=== PATIENT | male | born 1950 | race African-American/Black ===

== ENCOUNTER 2021-02-22 13:34 | Emergency (ER) | payer MEDICARE, MEDICAID, SELFPAY ==
[2021-02-22] VITALS (11 sets, daily range): BP systolic 119; BP diastolic 64; PULSE 77–79; RESP 18–28; TEMP 36.9; O2SAT 96; BMI 33.0
--- NOTE | ~2021-02-22 | CT_ITS ---
EXAMINATION: CT HEAD WITHOUT CONTRAST CLINICAL INFORMATION: Weakness, AMS. COMPARISON: CT brain 10/21/2018 TECHNIQUE: Contiguous axial imaging was performed from the skull base to vertex without intravenous administration of contrast. This CT examination was performed using dose optimization techniques as appropriate, variously including the following: *Automated exposure control *Adjustment of mA and/or kV according to patient size (this includes techniques or standardized protocols for targeted exams where dose is matched to indication/reason for exam; i.e. extremities or head) *Use of iterative reconstruction technique DLP: 823 mGy-cm FINDINGS: There is no evidence of acute intracranial hemorrhage or territorial infarction. No abnormal mass effect or midline shift is seen. Villa to white matter differentiation is well preserved. No extra-axial fluid collections are identified. The ventricles are normal in size. There is no abnormal attenuation within the brain parenchyma. The osseous structures and soft tissues are normal. The mastoid air cells and visualized portions of the paranasal sinuses are well aerated. CT/CT head/brain wo con IMPRESSION: No acute intracranial process seen.
--- NOTE | ~2021-02-22 | XR_ITS ---
EXAMINATION: XR CHEST CLINICAL INFORMATION: Weakness COMPARISON: None TECHNIQUE: 2 views of the chest were obtained. FINDINGS: There is elevation of the left hemidiaphragm with gaseous distended stomach below it. No acute parenchymal disease, pneumothorax, or pleural effusion. Heart normal size. No evidence of pulmonary edema. XR/XR chest 2V IMPRESSION: No acute disease.
--- NOTE | 2021-02-22 13:52 | ECG_ITS ---
Test Reason : ALTER MENTAL Blood Pressure : / mmHG Vent. Rate : 076 BPM Atrial Rate : 076 BPM P-R Int : 182 ms QRS Dur : 084 ms QT Int : 382 ms P-R-T Axes : 042 073 056 degrees QTc Int : 429 ms Normal sinus rhythm Normal ECG No previous ECGs available Referred By: Mamie Gutierres Electronically Signed By:Armand Rodriguez
--- NOTE | 2021-02-22 13:54 | ED.AMS ---
HPI - Altered Mental Status General Chief Complaint: General Medical Stated Complaint: change in behavior Time Seen by Provider: 02/22/21 13:41 Source: EMS Mode of arrival: EMS Limitations: no limitations History of Present Illness HPI narrative: 71-year-old male coming from a [facility] with a past medical history of dementia, diabetes, bipolar disease, hypertension, epilepsy here with complaints of generalized weakness. Patient had lunch per report and after that started to complain of feeling unwell to staff. No specific complaints. Patient states I'm gonna today. Staff was also concerned that he was more confused from baseline. No recent falls or trauma reported. Patient denies any chest pain, abdominal pain, vomiting, fevers, chills. Of note, the patient is a DNR/DNI/do not hospitalize except for injury. Related Data Allergies Allergy/AdvReac Type Severity Reaction Status Date / Time No Known Allergies Allergy Verified 02/22/21 13:52 Review of Systems Review of Systems: Yes all other systems are reviewed and are negative Constitutional: Constitutional: Reports no additional constitutional complaints, Denies body ache(s), Denies chills, Denies fever(s), Denies headache(s) and Reports weakness Eyes: Eyes: Reports no additional eye complaints and Denies change in vision ENT: Reports system reviewed and no additional complaints, except as documented, Denies dizziness, Denies headache(s), Denies nasal congestion, Denies nasal discharge and Denies neck pain Cardiovascular: Cardiovascular: Reports no additional cardiovascular complaints, Denies chest pain, Denies leg edema and Denies dyspnea Respiratory: Respiratory: Reports no additional respiratory complaints, Denies cough and Denies dyspnea Gastrointestinal: Gastrointestinal: Reports no additional gastrointestinal complaints, Denies abdominal pain, Denies diarrhea, Denies nausea and Denies vomiting Genitourinary: Genitourinary: Denies urinary incontinence Musculoskeletal: Musculoskeletal: Reports no additional musculoskeletal complaints, Denies back pain, Denies arthralgias, Denies joint swelling, Denies neck pain, Denies numbness and Denies tingling Integumentary/Breasts: Skin/Breast: Reports system reviewed and no additional complaints, except as docu and Denies rash Neurologic: Reports system reviewed and no additional complaints, except as documented, Denies Abnormal speech present, Denies dizziness, Denies headache(s), Denies numbness, Denies tingling and Reports weakness PMF Past Medical History Attestation statement: The following information was validated with the patient. Source: old records reviewed and nursing notes reviewed Medical History Bipolar 1 disorder Dementia Epilepsy Epilepsy Neurosyphilis Primary hypertension Social History Social History Alcohol intake: former Patient Tobacco Use Status: Never used Tobacco Substance Use Type: Marijuana Advance Directives: Yes (DNR, Guardianship) Advance Directives on File: Yes Advance Directives Date on File: 02/22/21 Physical Exam Vital Signs: Vital Signs: Last Vital Signs Temp 98.5 F 02/22/21 13:53 Pulse 79 02/22/21 13:53 Resp 20 02/22/21 19:31 BP 119/64 02/22/21 13:53 Pulse Ox 96 02/22/21 13:53 Body Mass Index 33.0 Const: General: cooperative, healthy appearing, comfortable and no acute distress Orientation/consciousness: oriented to person Limitations: altered mental status HENMT: Head: Yes normal to inspection Ears: hearing grossly normal bilaterally General nose exam: Normal external nose present Face and sinus: Yes normal facial exam Mouth: Normal oral and palatal mucosa present Throat: Yes posterior oropharynx normal Eyes: General: appearance normal, both eyes and all related structures Pupils: Equal, round and reactive pupils present Neck: Neck: Yes normal visual inspection Chest: Chest palpation & inspection: normal inspection of the chest Resp: Effort & Inspection: normal respiratory effort Auscultation: clear to auscultation bilaterally Cardio: Rate: regular rate Rhythm: regular rhythm Peripheral pulses: Peripheral pulses 2+ throughout GI: Inspection: Yes normal to inspection Palpation (GI): Soft to palpation and nontender Auscultation: normal bowel sounds Back/Spine/Pelvis: Thoracic/Lumbar Spine: thoracic and lumbar spine normal to inspection Skin: General skin exam: no rashes or lesions noted Neuro: General: oriented to person, moves all extremities, normal sensation to monofilament and Unable to assess gait Cranial nerves: Yes Equal, round and reactive pupils present Cognition (Neuro): normal cognition Speech: No Abnormal speech present Gait exam (Neuro): Unable to assess gait Motor exam (neuro): 5/5 motor strength present throughout Sensory Exam: Normal double simultaneous stimulation for sensation Extrem: General: Yes normal to inspection, Yes no pedal edema and Yes no calf tenderness Course Course Course Narrative: 71 yo male coming from [facility] with compaints of generalized weakness, ?worsening confusion and stating I am going to . Note, the patient has underlying dementia. He is a DNR/DNI/to not transfer. However, today he was asking to be transported to the hospital and on arrival he is seeking full evaluation. Oriented to self only, moving all extremities with no unilateral weakness or paresthesias. Hemodynamically stable. Will check labs, UA, EKG, chest x-ray, CT head. 1540-elevated lactic acid. Likely from metformin and not from infection, 1640-imaging shows no acute finding. All other labs are unremarkable. UA is pending. Plan for repeat lactic acid after fluid infusion 1745-patient is refusing repeat lactic acid. Again this is likely secondary to metformin and not from infection. Also refusing to provide urine sample. Called and spoke to patient's guardian Rizwana Melo and she does not wish the patient to be held down for these tests. If he is not willing she is aggreable to his return to [facility]. 1840-unfortunately the patient became increasingly agitated while he was here in the emergency department. The multiple times of redirection were made unsuccessfully. Therefore he required 1 dose of IM Haldol. 1900-the patient had continued agitation, unable to be re-directed despite multiple attempts. Additional dose of haldol IM given. On review of patient's chart these behaviors are quite common and his dose of PO haldol was increased over the last week. On discharge patient was able to get dressed and on to the ambulance stretcher with no difficulty. He is much more calm and cooperative. MDM - Altered Mental Status Differential Diagnosis Differential diagnosis: Likely altered mental status, dementia, hypoglycemia, hyponatremia, renal failure, subarachnoid hemorrhage and sepsis Medical Records Attestation: I reviewed the patient's medical records. Lab Data Attestation: I reviewed the patient's lab results. Result diagrams: 02/22/21 14:37 02/22/21 16:03 Labs: Lab Results 02/22/21 02/22/21 02/22/21 Range/Units 14:36 14:36 14:37 WBC 9.2 (4.8-10.8) X10*3/uL RBC 4.35 L (4.60-5.80) X10*6/uL Hgb 12.9 L (14.0-18.0) g/dl Hct 38.9 L (42-52) % MCV 89.4 (80-98) fL MCH 29.7 (27.0-33.0) pg MCHC 33.2 (31.0-36.0) g/dl RDW 12.4 (11.0-16.0) % Plt Count 224 (160-400) X10*3/uL MPV 9.2 L (9.4-12.4) fL Immature Gran % (Auto) 0.3 (0.0-0.4) % Neut % (Auto) 65.0 (45-73) % Lymph % (Auto) 24.5 (20-40) % Twiggs % (Auto) 8.8 (2-11) % Eos % (Auto) 1.1 (0-4) % Baso % (Auto) 0.3 (0-2) % Lymph # (Auto) 2.3 (1.2-4.9) X10*3/uL Twiggs # (Auto) 0.8 (0.1-1.2) X10*3/uL Eos # (Auto) 0.1 (0.0-0.4) X10*3/uL Baso # (Auto) 0.0 (0.0-0.2) X10*3/uL Abs Immat Gran (auto) 0.03 (0.00-0.03) X10*3/uL Absolute Neuts (auto) 6.0 (2.0-8.3) X10*3/uL Absolute Nucleated RBC 0.000 (0.0-0.012) X10*3/uL Nucleated RBC % (auto) 0.0 (0.0-0.2) /100WBC Sodium (135-145) mmol/L Potassium (3.3-5.1) mmol/L Chloride (96-108) mmol/L Carbon Dioxide (22-29) mmol/L Anion Gap (12-20) BUN (9-16) mg/dL Creatinine (0.5-1.4) mg/dL Estim Creat Clear Calc Estimated GFR Random Glucose (60-115) mg/dL Lactic Acid 2.5 H* (0.5-2.0) mmol/L Calcium (8.4-10.2) mg/dL Magnesium (1.6-2.6) mg/dL Total Bilirubin (0.0-1.0) mg/dL Direct Bilirubin (0.0-0.5) mg/dL AST (5-37) U/L ALT (0-40) U/L Alkaline Phosphatase (39-117) U/L Total Creatine Kinase (38-174) U/L Troponin I High Sens < 3.5 (<3.5-35.0) ng/L Total Protein (6.5-8.0) g/dL Albumin (3.5-5.0) g/dL Lipase (8-78) U/L COVID-19 (CHRISTINA) (Negative) COVID-19 Clin Com 02/22/21 02/22/21 Range/Units 14:37 16:03 WBC (4.8-10.8) X10*3/uL RBC (4.60-5.80) X10*6/uL Hgb (14.0-18.0) g/dl Hct (42-52) % MCV (80-98) fL MCH (27.0-33.0) pg MCHC (31.0-36.0) g/dl RDW (11.0-16.0) % Plt Count (160-400) X10*3/uL MPV (9.4-12.4) fL Immature Gran % (Auto) (0.0-0.4) % Neut % (Auto) (45-73) % Lymph % (Auto) (20-40) % Twiggs % (Auto) (2-11) % Eos % (Auto) (0-4) % Baso % (Auto) (0-2) % Lymph # (Auto) (1.2-4.9) X10*3/uL Twiggs # (Auto) (0.1-1.2) X10*3/uL Eos # (Auto) (0.0-0.4) X10*3/uL Baso # (Auto) (0.0-0.2) X10*3/uL Abs Immat Gran (auto) (0.00-0.03) X10*3/uL Absolute Neuts (auto) (2.0-8.3) X10*3/uL Absolute Nucleated RBC (0.0-0.012) X10*3/uL Nucleated RBC % (auto) (0.0-0.2) /100WBC Sodium 138 (135-145) mmol/L Potassium 4.3 (3.3-5.1) mmol/L Chloride 104 (96-108) mmol/L Carbon Dioxide 27 (22-29) mmol/L Anion Gap 11 L (12-20) BUN 17 H (9-16) mg/dL Creatinine 0.95 (0.5-1.4) mg/dL Estim Creat Clear Calc 85.0 Estimated GFR > 60 Random Glucose 74 (60-115) mg/dL Lactic Acid (0.5-2.0) mmol/L Calcium 9.1 (8.4-10.2) mg/dL Magnesium 2.0 (1.6-2.6) mg/dL Total Bilirubin 0.2 (0.0-1.0) mg/dL Direct Bilirubin < 0.2 (0.0-0.5) mg/dL AST 19 (5-37) U/L ALT 27 (0-40) U/L Alkaline Phosphatase 105 (39-117) U/L Total Creatine Kinase 177 H (38-174) U/L Troponin I High Sens (<3.5-35.0) ng/L Total Protein 6.9 (6.5-8.0) g/dL Albumin 3.9 (3.5-5.0) g/dL Lipase 56 (8-78) U/L COVID-19 (CHRISTINA) Negative (Negative) COVID-19 Clin Com See Note Imaging Data Chest x-ray: Attestation: I personally reviewed and interpreted this imaging study as follows: Radiologist's impression: EXAMINATION: XR CHEST CLINICAL INFORMATION: Weakness COMPARISON: None TECHNIQUE: 2 views of the chest were obtained. FINDINGS: There is elevation of the left hemidiaphragm with gaseous distended stomach below it. No acute parenchymal disease, pneumothorax, or pleural effusion. Heart normal size. No evidence of pulmonary edema. XR/XR chest 2V IMPRESSION: No acute disease. CT scan - head: Attestation: I personally reviewed and interpreted this imaging study as follows: Radiologist's impression: [address] [address] [address] Scan Report Signed Patient: Wiliam Nguyễn MR#: [id number] : 1950 Acct:[id number] Age/Sex: 71 / M ADM Date: 02/22/21 Loc: HO.ED Attending Dr: Ordering Physician: JAMIL TUTTLE NP Date of Service: 02/22/21 Procedure(s): CT head/brain wo con Accession Number(s): [id number] cc: JAMIL TUTTLE NP~ EXAMINATION: CT HEAD WITHOUT CONTRAST CLINICAL INFORMATION: Weakness, AMS.? COMPARISON: CT brain 10/21/2018 TECHNIQUE: Contiguous axial imaging was performed from the skull base to vertex without intravenous administration of contrast. This CT examination was performed using dose optimization techniques as appropriate, variously including the following: *Automated exposure control *Adjustment of mA and/or kV according to patient size (this includes techniques or standardized protocols for targeted exams where dose is matched to indication/reason for exam; i.e. extremities or head) *Use of iterative reconstruction technique DLP: 823 mGy-cm FINDINGS: There is no evidence of acute intracranial hemorrhage or territorial infarction. No abnormal mass effect or midline shift is seen. Villa to white matter differentiation is well preserved. No extra-axial fluid collections are identified. The ventricles are normal in size. There is no abnormal attenuation within the brain parenchyma. The osseous structures and soft tissues are normal. The mastoid air cells and visualized portions of the paranasal sinuses are well aerated. ? CT/CT head/brain wo con IMPRESSION: No acute intracranial process seen. ECG Data ECG #1: Attestation: I personally reviewed and interpreted this ECG as follows: ECG interpretation date: 02/22/21 ECG interpretation time: 14:18 Interpretation: Normal sinus rhythm with a rate of 76, normal DE, normal QRS, QT Discharge Plan Discharge Clinical Impression: Weakness Patient Disposition: [facility] Instructions: Weakness (ED) Additional Instructions: The patient refused a urine sample and repeat lab work. I spoke to his guardian Rizwana who was in agreement that we would not pursue these tests as the patient does not wish for them to be done. Referrals: Thanh Cervantes DO [Primary Care Provider] - 2 days Discharge Date/Time: 02/22/21 19:37
[2021-02-22 15:16] LABS: MANUAL DIFF FLAG NO
[2021-02-22 15:20] LABS: Basophils Percent Auto 0.3 % (0-2); Eosinophils Absolute Auto 0.1 X10*3/uL (0.0-0.4); Eosinophils Percent Auto 1.1 % (0-4); Hematocrit 38.9 % (42-52); Hemoglobin 12.9 g/dl (14.0-18.0); Imm Gran Abs Auto 0.03 X10*3/uL (0.00-0.03); Imm Gran Pct Auto 0.3 % (0.0-0.4); Lymphocytes Absolute Auto 2.3 X10*3/uL (1.2-4.9); Lymphocytes Percent Auto 24.5 % (20-40); Mean Corpuscular HGB Conc 33.2 g/dl (31.0-36.0); Mean Corpuscular Hemoglobin 29.7 pg (27.0-33.0); Mean Corpuscular Volume 89.4 fL (80-98); Mean Platelet Volume 9.2 fL (9.4-12.4); Monocytes Absolute Auto 0.8 X10*3/uL (0.1-1.2); Monocytes Percent Auto 8.8 % (2-11); Platelet Count 224 X10*3/uL (160-400); Red Blood Count 4.35 X10*6/uL (4.60-5.80); Red Cell Distribution Width 12.4 % (11.0-16.0); White Blood Count 9.2 X10*3/uL (4.8-10.8)
[2021-02-22 15:43] LABS: Troponin-I High Sensitivity < 3.5 ng/L (<3.5-35.0)
[2021-02-22 15:46] LABS: COVID-19 Test Negative (Negative)
[2021-02-22 15:46] LABS: Lactic Acid 2.5 mmol/L (0.5-2.0)
[2021-02-22] MEDS: 0.9 % Sodium Chloride 500 ML 999 ML IV (16:06)
[2021-02-22 16:36] LABS: Alanine Aminotransferase 27 U/L (0-40); Albumin Level 3.9 g/dL (3.5-5.0); Alkaline Phosphatase 105 U/L (39-117); Anion Gap 11 (12-20); Aspartate Amino Transferase 19 U/L (5-37); Bilirubin Direct < 0.2 mg/dL (0.0-0.5); Bilirubin Total 0.2 mg/dL (0.0-1.0); Blood Urea Nitrogen 17 mg/dL (9-16); Calcium 9.1 mg/dL (8.4-10.2); Carbon Dioxide 27 mmol/L (22-29); Chloride 104 mmol/L (96-108); Estimated Glomerular Filt Rate > 60; Glucose Random 74 mg/dL (60-115); Lipase 56 U/L (8-78); Potassium 4.3 mmol/L (3.3-5.1); Sodium 138 mmol/L (135-145); Total Protein 6.9 g/dL (6.5-8.0)
[2021-02-22 17:14] LABS: Reflex Lactate? Lactic Acid Added
--- NOTE | 2021-02-22 17:34 | PC.NURSE ---
pt difficult stick, multiple attempts for lactic redraw- per sterilization tech. too busy to come. You guys are goign to have to wait .
--- NOTE | 2021-02-22 17:41 | PC.NURSE ---
DATA ARCHITECT aware of patients refusal. Pt to give UA at this time.
--- NOTE | 2021-02-22 17:53 | PC.NURSE ---
Pt now yelling about lack of clothing. Plan to send backto snf.
--- NOTE | 2021-02-22 18:00 | PC.NURSE ---
Pt tolerating po and ambulated without difficulty.
--- NOTE | 2021-02-22 18:06 | PC.NURSE ---
Report given Horace CERON NO questions regarding care and outpatient management.
[2021-02-22] MEDS: Haloperidol Lactate 5 MG/ML VIAL IM ×2 (18:24→18:46)
--- NOTE | 2021-02-22 18:30 | PC.NURSE ---
1814-pt became verbally aggressive with staff and stated fuck you i'm not going to lay down. medicated with 5mg im haldol to right outter thigh. plan at this time. is to monitor for 10 minutes, pt remains out of behavioral control.
--- NOTE | 2021-02-22 18:50 | PC.NURSE ---
Haldol 5mg removed from Pyxis by Val Gray RN. Medication administered by Celeste De La O RN, witnessed by this RN. Security also present for administration.
--- NOTE | 2021-02-22 19:36 | PC.NURSE ---
Onems stretcher. Pt stable.
== END 2021-02-22 19:37 | disposition skilled nursing facility (03) ==
PROVIDERS: Nurse Practitioner Family; Emergency Provider Emergency Medicine; PCP Hospitalist
DX: R53.1 Weakness (principal); R41.82 Altered mental status, unspecified; F03.90 Unspecified dementia, unspecified severity, without behavioral disturbance, psychotic disturbance, mood disturbance, and anxiety; E11.9 Type 2 diabetes mellitus without complications; F12.90 Cannabis use, unspecified, uncomplicated; Z20.822 Contact with and (suspected) exposure to COVID-19; Z79.84 Long term (current) use of oral hypoglycemic drugs; Z79.899 Other long term (current) drug therapy
CPT/HCPCS: 36415; 51702; 70450; 71046; 80048; 80076; 82550; 83605; 83690; 83735; 84484; 85025; 87040; 87635; 93005; 96372; 99284

== ENCOUNTER 2021-06-05 15:47 | Emergency (ER) | payer MEDICARE, MEDICAID, SELFPAY ==
--- NOTE | ~2021-06-05 | CT_ITS ---
EXAMINATION: NONCONTRAST HEAD CT NONCONTRAST FACIAL BONES CT NONCONTRAST CERVICAL SPINE CT INDICATION INFORMATION: Fall, seizure COMPARISON: 02/22/2021 TECHNIQUE: Separate noncontrast CT examinations of the head, maxillofacial bones, and cervical spine were performed. Coronal and sagittal images were created for each examination at the technologist workstation. DOSE LOWERING TECHNIQUES: This CT examination was performed using dose optimization techniques as appropriate, variously including the following: - Automated exposure control - Adjustment of mA and/or kV according to patient size (this includes techniques or standardized protocols for targeted exams were dose is matched to indication/reason for exam; i.e. extremities or head) - Use of iterative reconstruction technique DLP: 2154 mGy-cm FINDINGS: Head: There is no evidence of acute intracranial hemorrhage or territorial infarction. Redemonstrated small hyperattenuating focus in the inferior right frontal lobe favoring a small focus of mineralization. No abnormal mass-effect or midline shift is seen. Villa to white matter differentiation is well preserved. No extra-axial fluid collections are identified. The ventricles are normal in size. There is mild periventricular white matter hypoattenuation consistent with chronic small vessel ischemic disease. Mild volume loss is noted. The osseous structures and soft tissues are normal. The mastoid air cells are well aerated. Facial bones: No acute maxillofacial fractures are seen. There is left periorbital soft tissue swelling. There is mild mucosal thickening of the left maxillary sinus. Remaining paranasal sinuses are well aerated. The mandibular condyles are well-seated in the condylar fossa. The orbits demonstrate a normal appearance bilaterally. The globes are intact, and there are no suspicious findings to suggest retrobulbar hemorrhage. Cervical spine: There is anatomic alignment of the vertebral bodies and posterior elements. There is degenerative change at the atlantodens articulation. Vertebral body heights are maintained. There is mild disc space narrowing of the lower cervical spine with associated endplate osteophytes. Bilateral facet arthropathy is noted. No evidence of acute fracture. No prevertebral soft tissue swelling. Visualized portions of the lung apices are unremarkable. The thyroid gland is unremarkable. CT/CT cervical spine wo con IMPRESSION: 1. No acute intracranial findings. 2. No facial fracture identified. Left periorbital soft tissue swelling. 3. No acute findings identified in the cervical spine.
[2021-06-05 16:00] VITALS: BMI 27.3
--- NOTE | 2021-06-05 16:09 | ED_ITS ---
HPI - Fall General Chief Complaint: Fall Stated Complaint: fall/ headstrike Time Seen by Provider: 06/05/21 15:54 Source: EMS, RN notes reviewed and old records reviewed Limitations: other (Severe dementia) History of Present Illness HPI Narrative: Patient unable to recount history. [facility] from [facility] where he is apparently severely debilitated. He has an order for DNR DNI do not hospitalize except for lacerations or fractures. Today he apparently fell and struck his left forehead and suffered a laceration. Unknown if loss of consciousness. No other apparent injuries per report. Related Data Allergies Allergy/AdvReac Type Severity Reaction Status Date / Time No Known Allergies Allergy Verified 02/22/21 13:52 Review of Systems Review of Systems: Unable to recount review of systems [facility] Past Medical History Medical History Bipolar 1 disorder Dementia Epilepsy Epilepsy Neurosyphilis Primary hypertension Social History Social History Alcohol intake: former Patient Tobacco Use Status: Never used Tobacco Substance Use Type: Marijuana Advance Directives: Yes Advance Directives on File: Yes Advance Directives Date on File: 02/22/21 Physical Exam Vital Signs: Vital Signs: Body Mass Index 27.3 Const: Other: Patient is awake and in no acute distress. HENMT: Other: 3 cm laceration to his forehead just above the left eyebrow. Minimal bleeding on arrival. No other obvious facial or cranial injuries Eyes: Other: Extraocular muscles apparently intact. Unable to assess for vision Neck: Other: Full range of motion Resp: Other: No shortness of breath : Other: Abdomen nontender Skin: Other: Laceration as mentioned above Neuro: Other: Unable to comply. Patient moving extremities without apparent difficulty Extrem: Other: No obvious injuries Course Course Course Narrative: Laceration in a patient with severe dementia after a fall. Apparently typically wears a helmet but his face and not his head suffering a laceration. He is unable to comply very well with the examination process. He was does not appear to be a candidate for significant intervention, so will therefore hold off on CT scan. Will attempt Dermabond closure of forehead laceration 4:26 p.m.. Patient tolerated the procedure very well. Good closure laceration. Discharge Plan Discharge Clinical Impression: Face lacerations Qualifiers: Encounter type: initial encounter Qualified Code(s): S01.81XA - Laceration without foreign body of other part of head, initial encounter Patient Disposition: er [facility] Instructions: Skin Adhesive Care (ED), Laceration (ED) Additional Instructions: Wheels laceration was repaired using tissue adhesive, skin glue. See instructions for details.
[2021-06-05 16:26] VITALS: BP 132/60; PULSE 66; RESP 14; O2SAT 100
--- NOTE | 2021-06-05 16:28 | PC.NURSE ---
Patient allowed Dr Guerrero to dermabond left under eyebrow. Will arrange for transport eventually.
[2021-06-05 20:00] VITALS: RESP 15
--- NOTE | 2021-06-05 20:33 | ED.GENADULT ---
HPI - General Adult General Chief complaint: Fall Stated complaint: fall/ headstrike Time Seen by Provider: 06/05/21 15:54 Source: EMS, RN notes reviewed and old records reviewed Limitations: other (Severe dementia) History of Present Illness HPI narrative: Patient apparently had a fall at a retirement. Possibly secondary to seizures. He has a history of seizure disorder. He also has a history of severe dementia. He is ambulatory typically without difficulty. Today he fell and struck the left side of his face sustaining a laceration. Patient denies other complaints. He declines evaluation. He has a DNR DNI do not hospitalize order except for laceration or other significant injuries. Due to the laceration he was sent to the emergency department. Related Data Allergies Allergy/AdvReac Type Severity Reaction Status Date / Time No Known Allergies Allergy Verified 02/22/21 13:52 Review of Systems Review of Systems: Patient with dementia but denies any other complaints PMFSH Past Medical History Medical History Bipolar 1 disorder Dementia Epilepsy Epilepsy Neurosyphilis Primary hypertension Social History Social History Alcohol intake: former Patient Tobacco Use Status: Never used Tobacco Substance Use Type: Marijuana Advance Directives: Yes Advance Directives on File: Yes Advance Directives Date on File: 02/22/21 Physical Exam Vital Signs: Vital Signs: Last Vital Signs Pulse 66 06/05/21 16:26 Resp 14 06/05/21 16:26 BP 132/60 06/05/21 16:26 Pulse Ox 100 06/05/21 16:26 Body Mass Index 27.3 Const: Other: Awake and alert HENMT: Other: 2 cm laceration just inferior to his left eyebrow. No other injuries noted Eyes: Other: Eyelids intact. No ocular injuries noted Resp: Other: No respiratory distress Cardio: Other: Regular rate and rhythm GI: Other: Soft nontender nondistended Skin: Other: Laceration as noted no other abnormalities. Neuro: Other: Nonfocal neuro exam. Patient ambulates in the emergency department without difficulty and without an ataxic gait Extrem: Other: Moving all 4 extremities without difficulty. No evidence of extremity trauma Course Course Course Narrative: Laceration, facial, left eyebrow No clinical evidence of intracranial hemorrhage or skull fracture or bony injury. Patient declining further intervention. Given history, will hold off on any further workup. 8:38 p.m.. I discussed case with Nela Burns, his guardian. She requested we get labs and check seizure medication levels if he would allow. He unfortunately is still declining. Given risks benefits, will hold off on lab work as well. Discharge Plan Discharge Clinical Impression: Face lacerations Qualifiers: Encounter type: initial encounter Qualified Code(s): S01.81XA - Laceration without foreign body of other part of head, initial encounter Patient Disposition: er [facility] Instructions: Laceration (ED), Skin Adhesive Care (ED) Additional Instructions: Wheels laceration was repaired using tissue adhesive, skin glue. See instructions for details.
--- NOTE | 2021-06-05 20:52 | PC.NURSE ---
This specifications writer was on a phone call when I heard a thump on the floor. Patient was found face down on the floor of his room. Patient appears to have hit his face on the floor as he was bleeding from his mouth. Patient has a seizure history and the room next door was being Covid cleaned with the lightstrike. Enviromental was asked to shut it off as patient was prone to seizure. Approximately 10 minutes later we heard a thump and found patient on floor. Patient was slow to respond while he was done and appeared to be possibly post ictal. ER provider at bedside and believes patient had a seizure as opposed to falling. motor and generator brush cutter and Nursing Civil Process Server were notified and aware.
--- NOTE | 2021-06-05 21:20 | PC.NURSE ---
Patient continues to wait for transportation and has been waiting for 5 hours at this point.
[2021-06-05 21:25] LABS: MANUAL DIFF FLAG NO
[2021-06-05 21:26] LABS: Basophils Percent Auto 0.2 % (0-2); Eosinophils Absolute Auto 0.1 X10*3/uL (0.0-0.4); Eosinophils Percent Auto 0.8 % (0-4); Hematocrit 41.4 % (42.0-52.0); Hemoglobin 13.6 g/dl (14.0-18.0); Imm Gran Abs Auto 0.04 X10*3/uL (0.00-0.03); Imm Gran Pct Auto 0.4 % (0.0-0.4); Lymphocytes Absolute Auto 2.5 X10*3/uL (1.2-4.9); Lymphocytes Percent Auto 22.1 % (20-40); Mean Corpuscular HGB Conc 32.9 g/dl (31.0-36.0); Mean Corpuscular Volume 88.3 fL (80.0-98.0); Mean Platelet Volume 8.9 fL (9.4-12.4); Monocytes Absolute Auto 0.9 X10*3/uL (0.1-1.2); Monocytes Percent Auto 8.1 % (2-11); Neutrophils Absolute Auto 7.8 x10*3/uL (2.0-8.3); Neutrophils Percent Auto 68.4 % (45-73); Platelet Count 219 X10*3/uL (160-400); Red Blood Count 4.69 X10*6/uL (4.60-5.80); Red Cell Distribution Width 13.2 % (11.0-16.0); White Blood Count 11.4 X10*3/uL (4.8-10.8)
[2021-06-05 21:43] LABS: Alanine Aminotransferase 29 U/L (0-40); Alkaline Phosphatase 89 U/L (39-117); Anion Gap 11 (12-20); Aspartate Amino Transferase 19 U/L (5-37); Bilirubin Total 0.2 mg/dL (0.0-1.0); Blood Urea Nitrogen 17 mg/dL (9-16); Calcium 9.3 mg/dL (8.4-10.2); Carbon Dioxide 25 mmol/L (22-29); Chloride 102 mmol/L (96-108); Creatinine Clr Calc Pharmacy 61.5; Estimated Glomerular Filt Rate > 60; Glucose Random 233 mg/dL (60-115); Potassium 3.8 mmol/L (3.3-5.1); Sodium 134 mmol/L (135-145); Total Protein 7.1 g/dL (6.5-8.0)
[2021-06-05] MEDS: diazePAM 2 MG TABLET PO (21:48)
--- NOTE | 2021-06-05 21:55 | PC.NURSE ---
Patient's transport arrived but Phentoin level has not come back. Patient took the diazepam that was ordered without incident. Patient is restless and agitated.
[2021-06-05 22:00] VITALS: RESP 18
[2021-06-05 22:02] LABS: Phenytoin Dilantin 5.5 ug/mL (10.0-20.0)
[2021-06-05 22:03] LABS: TSH reflex Free T4 1.56 uIU/mL (0.32-4.0)
[2021-06-05] MEDS: Amoxicillin/Potassium Clav 875 MG TABLET PO (22:36)
[2021-06-05] MEDS: Phenytoin Chewable 50 MG TAB.CHEW 800 MG PO (22:36)
--- NOTE | 2021-06-05 22:46 | PC.NURSE ---
Patient has refused all vital signs since this entry writer arrived on shift. Patient did take the prescribed medication prescribed per emar. However, when transport arrived to take patient back to the correction patient refused and threatened staff with putting a bullet in their head. Patient became verbally aggresive and refused to Ativan and told this entry writer to Fuck you . Charge nurse aware of situation.
[2021-06-05] MEDS: OLANZapine 10 MG VIAL 5 MG IM (23:08)
[2021-06-05] MEDS: LORazepam 2 MG/ML VIAL 1 MG IM (23:09)
[2021-06-05] MEDS: diphenhydrAMINE HCL 50 MG/ML VIAL 25 MG IM (23:09)
--- NOTE | 2021-06-05 23:24 | PC.NURSE ---
Patient's transport was put on will call basis because patient was irritated and acting out. He refused to go with the ambulance people and threatened staff. Patient was suppose to have CAT scan but refused the cat scan and again became agitated. MD aware that patient has refused the scanning. Patient has history of Traumatic Brain Injury
[2021-06-06] VITALS: RESP 15
== END 2021-06-06 02:19 | disposition skilled nursing facility (03) ==
PROVIDERS: Emergency Medicine; Emergency Provider Student in an Organized Health Care Education/Training Program
DX: S01.81XA Laceration without foreign body of other part of head, initial encounter (principal); F03.90 Unspecified dementia, unspecified severity, without behavioral disturbance, psychotic disturbance, mood disturbance, and anxiety; F12.90 Cannabis use, unspecified, uncomplicated; W01.0XXA Fall on same level from slipping, tripping and stumbling without subsequent striking against object, initial encounter; Y93.9 Activity, unspecified; Y92.129 Unspecified place in nursing home as the place of occurrence of the external cause; Y99.9 Unspecified external cause status; Z79.899 Other long term (current) drug therapy; Z66 Do not resuscitate
CPT/HCPCS: 36415; 70450; 70486; 72125; 80053; 80185; 84443; 85025; 96372; 99284; 99285; J1200; J2060

== ENCOUNTER 2024-12-22 10:07 | Outpatient (AMB) | payer MEDICARE, MEDICAID, SELFPAY ==
--- NOTE | 2024-12-22 10:15 | MHC.OFFVIS ---
Intake Visit Reasons: elevated PSA Intake Note: Patient is present for ELEVATED PSA Urology Medication:NONE Antibiotic Allergy:NONE Blood Thinner:NONE Ergonomics Technician Required: No Allergies No Known Allergies Allergy (Verified 12/22/24 10:17) HPI Comments Details: Wiliam is a pleasant male. He is a patient at [facility]. He seen for the following urologic conditions - elevated PSA Diabetic on metformin and Januvia Type 1 bipolar with neurosyphilis Elevated PSA PSA 11/12 11.6 Start dutasteride Repeat labs in 4 months [facility] Medical History Bipolar 1 disorder Dementia Epilepsy Epilepsy Neurosyphilis Primary hypertension Social History Alcohol intake: former Patient Tobacco Use Status: Never used Tobacco Substance Use Type: Marijuana Advance Directives Date on File: 02/22/21 Review of Systems Const Denies chills and Denies fever(s) Card Reports no additional complaints and Denies syncope Resp Denies cough GI Denies abdominal pain and Denies heartburn Reports as per HPI and Denies change in libido Neuro Denies syncope Psych Denies change in libido Endo Denies change in libido Physical Exam Const General: cooperative, healthy appearing, comfortable and no acute distress Orientation/consciousness: patient oriented x3 HEENT Face and sinus: Yes normal facial exam Mouth: moist mucous membranes Neck Neck: Yes normal visual inspection, Yes full ROM and Yes trachea midline Chest Chest palpation & inspection: normal inspection of the chest Resp Effort & Inspection: normal respiratory effort, able to speak in complete sentences and no respiratory distress GI Inspection: Yes normal to inspection Back/Spine/Pelvis Cervical Spine: normal cervical lordosis Thoracic/Lumbar Spine: thoracic and lumbar spine normal to inspection Skin General skin exam: no rashes or lesions noted Neuro General: patient oriented x3, gait normal, tone normal and moves all extremities Extrem General: Yes normal to inspection and Yes capillary refill normal Assessment & Plan Assessment & Plan (1) Elevated PSA: Code(s): R97.20 - Elevated prostate specific antigen [PSA] Category: Medical Plan Start dutasteride Four-month follow-up PSA Orders: Orders PSA,Total (Free>4and<10) 4 Months R97.20 - Elevated prostate specific antigen [PSA] Medications: New dutasteride 0.5 mg PO DAILY 90 days 90 caps 1RF N13.8 - Other obstructive and reflux uropathy, N40.1 - Benign prostatic hyperplasia with lower urinary tract symptoms, R97.20 - Elevated prostate specific antigen [PSA] Patient Instructions: This note is constructed using voice recognition software. While every effort has been made to ensure accuracy mail order sorter errors may have been included. Imaging studies, laboratory and physical exam results were discussed and reviewed in detail. No major barriers to patient understanding were identified. An opportunity to ask questions regarding the treatment plan was provided. All questions were answered. The patient expressed understanding and agreement with the above treatment plan. The patient is aware they should contact our office by phone for worsening of their current condition or the appearance of new urologic symptoms. Compliance is encouraged with any medications and followup testing that is ordered. It is a privilege to participate in the urologic care of your patient. If you have any questions or concerns regarding treatment for the above conditions, or other urologic issues, please do not hesitate to contact me. The office telephone contact is [phone]. Sincerely, Dr Tae Ennis MD, [facility] - Urology Compassionate Specialist Care for the Genitourinary System Coding Level of Care Code New Pt Level 4 (46147) Diagnoses Elevated PSA R97.20
--- OUTSIDE RECORDS SUMMARY | 2024-12-22 10:45 | XMS_ITS | Clinical Summary ---
Author Organization [address] [facility] Address [address] [place] [address] Phone Care Team Providers Care Base Filler Operator Name Role Phone Thanh Cervantes MD Primary Care Provider [phone] Encounters Date Type Department Care Team Description 10/29/2024 Lab Requisition [facility] - Main Lab [address] [facility] [place] [address] Thanh Cervantes MD Epilepsy, unspecified, not intractable, without status epilepticus (CMS/HCC V24, CMS/HCC V28); Essential (primary) hypertension; Type 2 diabetes mellitus without complications (CMS/HCC V24, CMS/HCC V28) from Last 3 Months Social History Tobacco Use Types Packs/Day Years Used Date Smoking Tobacco: Never Assessed Sex and Gender Information Value Date Recorded Sex Assigned at Not on file Legal Sex Male 6:38 AM EST Gender Identity Not on file Sexual Orientation Not on file Plan of Treatment Health Maintenance Due Date Last Done Comments Diabetes: Annual Foot Exam 1960 Diabetes: Annual Retina Eye Exam 1960 DTaP,Tdap,and Td Vaccines (1 - Tdap) 01/12/1968 Pneumococcal Vaccine: 50+ Ye ars (1 of 2 - PCV) 01/12/1968 Zoster Vaccines (1 of 2) 1999 Abdominal Aortic Aneurysm (A AA) Screen 06/23/2022 Cholesterol Screening (Lipid Panel) 06/23/2022 Colorectal Cancer Screening: Colonoscopy 06/23/2022 Depression Screening 06/23/2022 Falls Risk Assessment 06/23/2022 Hepatitis C Screening 06/23/2022 Social Influencers of Health Screening 06/23/2022 RSV Immunization Adult Patie nts (1 - 1-dose 75+ series) 01/12/2024 COVID-19 Vaccine (2023-2 5 season) 2024 Diabetes: Annual Urine Albumin-Creatinine Ratio (uACR) 10/29/2024 Influenza Vaccine (Season Ended) 2025 Diabetes: Blood Sugar Contro l Test (HGBA1C) 04/30/2025 10/29/2024 Diabetes: Annual GFR (Glomer ular Filtration Rate) 10/29/2025 10/29/2024 Hypertension/CHF/CAD Annual BMP Blood Test 10/29/2025 10/29/2024 HIB Vaccines Aged Out No longer eligi ble based on patient's age to complete this topic HPV Vaccines Aged Out No longer eligi ble based on patient's age to complete this topic Hepatitis A Vaccines Aged Out No long er eligible based on patient's age to complete this topic Hepatitis B Vaccines Aged Out No long er eligible based on patient's age to complete this topic IPV Vaccines Aged Out No longer eligi ble based on patient's age to complete this topic MMR Vaccines Aged Out No longer eligi ble based on patient's age to complete this topic Meningococcal ACWY Vaccine Aged Out N o longer eligible based on patient's age to complete this topic Meningococcal B Vaccine Aged Out No l onger eligible based on patient's age to complete this topic RSV Immunization Patients Un ganesh 20 months Aged Out No longer eligible b ased on patient's age to complete this topic Varicella Vaccines Aged Out No longer eligible based on patient's age to complete this topic Procedures Procedure Name Priority Date/Time Associated Diagnosis Comments SST - GOLD Routine 10/29/2024 6:39 AM EDT Epilepsy, unspecified, not intractable, without status epilepticus ([facility] V24, [facility] V28) Essential (primary) hypertension Type 2 diabetes mellitus without complications ([facility] V24, CMS/[facility] V28) HEMOGLOBIN A1C Routine 10/29/2024 6:39 AM EDT Epilepsy, unspecified, not intractable, without status epilepticus ([facility] V24, [facility] V28) Essential (primary) hypertension Type 2 diabetes mellitus without complications ([facility] V24, CMS/[facility] V28) CBC WITH AUTO DIFFERENTIAL Routine 10/29/2024 6:39 AM EDT Epilepsy, unspecified, not intractable, without status epilepticus ([facility]/HCC V24, CMS/HCC V28) Essential (primary) hypertension Type 2 diabetes mellitus without complications (CMS/HCC V24, CMS/HCC V28) THYROID STIMULATING HORMONE Routine 10/29/2024 6:39 AM EDT Epilepsy, unspecified, not intractable, without status epilepticus (CMS/HCC V24, CMS/HCC V28) Essential (primary) hypertension Type 2 diabetes mellitus without complications (CMS/HCC V24, CMS/HCC V28) PROSTATE SPECIFIC ANTIGEN SCREEN Routine 10/29/2024 6:39 AM EDT Epilepsy, unspecified, not intractable, without status epilepticus (CMS/HCC V24, CMS/HCC V28) Essential (primary) hypertension Type 2 diabetes mellitus without complications (CMS/HCC V24, CMS/HCC V28) CBC AND DIFFERENTIAL Routine 10/29/2024 6:39 AM EDT Epilepsy, unspecified, not intractable, without status epilepticus (CMS/HCC V24, CMS/HCC V28) Essential (primary) hypertension Type 2 diabetes mellitus without complications (CMS/HCC V24, CMS/HCC V28) PHENYTOIN LEVEL, TOTAL Routine 10/29/2024 6:39 AM EDT Epilepsy, unspecified, not intractable, without status epilepticus (CMS/HCC V24, CMS/HCC V28) Essential (primary) hypertension Type 2 diabetes mellitus without complications (CMS/HCC V24, CMS/HCC V28) COMPREHENSIVE METABOLIC PANEL Routine 10/29/2024 6:39 AM EDT Epilepsy, unspecified, not intractable, without status epilepticus (CMS/HCC V24, CMS/HCC V28) Essential (primary) hypertension Type 2 diabetes mellitus without complications (CMS/HCC V24, CMS/HCC V28) from Last 3 Months Results * (ABNORMAL) Prostate specific antigen screen (10/29/2024 6:39 AM EDT) PSA 11.61(H) 0.00 - 4.00 ng/mL LAB CHEMISTRY METHOD 10/29/2024 9:[address] [facility] Blood Venous blood specimen / Unknown 10/29/2024 6:39 AM EDT 10/29/2024 7:[address] [facility] - 10/29/2024 9:32 AM EDT The Siemens Advia Centaur Chemiluminescent Immunoassay is used. Results obtained with different assay methods or kits cannot be used interchangeably. Results cannot be interpreted as absolute evidence of the presence or absence of malignant disease. us Thanh Cervantes MD LAB BLOOD ORDERABLES Final Resul t Performing Organization Address City/[facility]/ZIP Co de Phone Number [facility] [address] [place] [address], [place] [phone] * SST tube (10/29/2024 6:39 AM EDT) Extra Tube Hold for add-ons. 10/29/2024 9:[address] [facility] Comment:Auto resulted. Blood Venous blood specimen / Unknown 10/29/2024 6:39 AM EDT 10/29/2024 7:54 AM EDT us Thanh Cervantes MD LAB BLOOD ORDERABLES Final Resul t Performing Organization Address [facility]/ZIP Co de Phone Number [facility] [address] [place] [address], [place] [phone] * CBC auto differential (10/29/2024 6:39 AM EDT) WBC 9.0 4.8 - 10.8 K/mcL LAB HEMETOLOGY METHOD 10/29/2024 8:[address] [facility] RBC 4.80 4.50 - 5.50 M/mcL LAB HEMETOLOGY METHOD 10/29/2024 8:[address] [facility] Hemoglobin 13.6 13.5 - 17.5 g/dL LAB HEMETOLOGY METHOD 10/29/2024 8:11 AM [facility] Hematocrit 42.5 42.0 - 54.0 % LAB HEMETOLOGY METHOD 10/29/2024 8:11 AM [facility] MCV 89.5 79.0 - 98.0 FL LAB HEMETOLOGY METHOD 10/29/2024 8:11 AM [facility] MCH 28.6 27.0 - 32.0 pcg LAB HEMETOLOGY METHOD 10/29/2024 8:11 AM [facility] MCHC 32.0 32.0 - 37.0 g/dL LAB HEMETOLOGY METHOD 10/29/2024 8:11 AM [facility] RDW 13.2 11.0 - 15.0 % LAB HEMETOLOGY METHOD 10/29/2024 8:11 AM [facility] Platelets 238 130 - 400 K/mcL LAB HEMETOLOGY METHOD 10/29/2024 8:11 AM [facility] MPV 9.6 7.0 - 11.0 FL LAB HEMETOLOGY METHOD 10/29/2024 8:11 AM [facility] NRBC 0.0 <1.0 % LAB HEMETOLOGY METHOD 10/29/2024 8:11 AM [facility] NRBC Absolute 0.00 <0.10 K/mcL LAB HEMETOLOGY METHOD 10/29/2024 8:11 AM [facility] Neutrophils Relative 62.3 % LAB HEMETOLOGY METHOD 10/29/2024 8:11 AM [facility] Lymphocytes Relative 26.4 % LAB HEMETOLOGY METHOD 10/29/2024 8:11 AM [facility] Monocytes Relative 9.9 % LAB HEMETOLOGY METHOD 10/29/2024 8:11 AM [facility] Eosinophils Relative 0.9 % LAB HEMETOLOGY METHOD 10/29/2024 8:[address] [facility] Basophils Relative 0.2 % LAB [facility]OLOGY [facility] Immature Granulocytes Relative 0.3 % LAB HEMETOLOGY METHOD 10/29/2024 8:[address] [facility] Neutrophils Absolute 5.63 1.50 - 7.00 K/mcL LAB HEMETOLOGY METHOD 10/29/2024 8:[address] [facility] Lymphocytes Absolute 2.38 1.00 - 5.00 K/mcL LAB HEMETOLOGY METHOD [facility]/29[facility]24 [facility] Monocytes Absolute 0.89 0.20 - 1.00 K/mcL LAB HEMETOLOGY METHOD 10/29/2024 8:11 AM [facility] Eosinophils Absolute 0.08 0.00 - 0.50 K/mcL LAB HEMETOLOGY METHOD 10/29/2024 8:[address] [facility] Basophils Absolute 0.02 0.00 - 0.20 K/mcL LAB HEMETOLOGY METHOD 10/29/2024 8:11 AM [facility] Immature Granulocytes Absolute 0.03 0.00 - 0.03 K/mcL LAB HEMETOLOGY METHOD 10/29/2024 8:11 AM [facility] Blood Venous blood specimen / Unknown 10/29/2024 6:39 AM EDT 10/29/2024 7:54 AM EDT us Thanh Cervantes MD LAB BLOOD ORDERABLES Final Resul t [facility] [address] [place] [address], * Thyroid stimulating hormone (10/29/2024 6:39 AM EDT) TSH 2.04 0.40 - 4.00 mcIU/mL LAB CHEMISTRY METHOD 10/29/2024 9:[address] [facility] Blood Venous blood specimen / Unknown 10/29/2024 6:39 AM EDT 10/29/2024 7:54 AM EDT us Thanh Cervantes MD LAB BLOOD ORDERABLES Final Resul t Performing Organization Address [facility] Co de Phone Number [facility] [address] [place] [address], [place] [phone] * (ABNORMAL) Hemoglobin A1c (10/29/2024 6:39 AM EDT) [facility] Hemoglobin A1C 7.2(H) <6.5 % LAB CHEMISTRY METHOD 10/29/2024 2:[address] [facility] Mean Bld Glu Estim. 160 mg/dL LAB CHEMISTRY METHOD 10/29/2024 2:[address] [facility] Blood Venous blood specimen / Unknown 10/29/2024 6:39 AM EDT 10/29/2024 7:54 AM EDT us Thanh Cervantes MD LAB BLOOD ORDERABLES Final Resul t Performing Organization Address [facility] de Phone Number [facility] [address] [place] [address], [place] [phone] * Phenytoin level total (10/29/2024 6:39 AM EDT) [facility] Phenytoin Level 12.6 10.0 - 20.0 mcg/mL LAB CHEMISTRY METHOD 10/29/2024 8:[address] [facility] Blood Venous blood specimen / Unknown 10/29/2024 6:39 AM EDT 10/29/2024 7:54 AM EDT us Thanh Cervantes MD LAB BLOOD ORDERABLES Final Resul t [facility] [address] [place] [address], * (ABNORMAL) Comprehensive metabolic panel (10/29/2024 6:39 AM EDT) Sodium 138 133 - 145 mmol/L LAB CHEMISTRY METHOD 10/29/2024 8:43 AM [facility] Potassium 4.2 3.5 - 5.5 mmol/L LAB CHEMISTRY METHOD 10/29/2024 8:43 AM [facility] Chloride 103 96 - 110 mmol/L LAB CHEMISTRY METHOD 10/29/2024 8:43 AM [facility] CO2 33(H) 21 - 32 mmol/L LAB CHEMISTRY METHOD 10/29/2024 8:43 AM [facility] Anion Gap 2(L) 3 - 11 LAB CHEMISTRY METHOD 10/29/2024 8:43 AM [facility] Glucose 147(H) 70 - 100 mg/dL LAB CHEMISTRY METHOD 10/29/2024 8:43 AM [facility] BUN 13 5 - 25 mg/dL LAB CHEMISTRY METHOD 10/29/2024 8:43 AM [facility] Creatinine 1.04 0.70 - 1.30 mg/dL LAB CHEMISTRY METHOD 10/29/2024 8:43 AM [facility] eGFR 75 >=60 mL/min/1. 73m2 LAB CHEMISTRY METHOD 10/29/2024 8:43 AM [facility] Comment:Calculation based on the??Chronic Kidney Disease Epidemiology Collaboration (CKD-EPI) equation refit??without adjustment for race. BUN/Creatinine Ratio 12.5 LAB CHEMISTRY METHOD 10/29/2024 8:43 AM [facility] Calcium 9.5 8.5 - 10.5 mg/dL LAB CHEMISTRY METHOD 10/29/2024 8:[address] [facility] AST (SGOT) 21 10 - 42 unit/L LAB CHEMISTRY METHOD 10/29/2024 8:[address] [facility] ALT (SGPT) 34 10 - 60 unit/L LAB CHEMISTRY METHOD 10/29/2024 8:[address] [facility] Alkaline Phosphatase 115 42 - 121 unit/L LAB CHEMISTRY METHOD 10/29/2024 8:[address] [facility] Total Protein 7.4 6.0 - 8.0 g/dL LAB CHEMISTRY METHOD 10/29/2024 8:[address] [facility] Albumin 3.7 3.2 - 5.0 g/dL LAB CHEMISTRY METHOD 10/29/2024 8:[address] [facility] Total Bilirubin 0.2 0.0 - 1.4 mg/dL LAB CHEMISTRY METHOD 10/29/2024 8:[address] [facility] Blood Venous blood specimen / Unknown 10/29/2024 6:39 AM EDT 10/29/2024 7:54 AM EDT us Thanh Cervantes MD LAB BLOOD ORDERABLES Final Resul t [facility] [address] [place] [address], from Last 3 Months Insurance MEDICAID - [place] Care Teams Base Filler Operator Relationship Specialty Start Date End Date Thanh Cervantes MD [address] [place] [address] Dr [address] ELVIN Chacon PCP - General Internal Medicine 10/29/24
== END 2024-12-22 10:48 | disposition home or self-care (01) ==
LOC: HO.HUSH 10:08
PROVIDERS: PCP Hospitalist; Visit Provider Urology
DX: R97.20 Elevated prostate specific antigen [PSA] (principal); Z13.9 Encounter for screening, unspecified
CPT/HCPCS: 99204

== ENCOUNTER → 2024-12-22 10:07 | Outpatient (BNVA) | payer MEDICARE, MEDICAID, SELFPAY | PROVIDERS: PCP Hospitalist; Visit Provider Urology | DX: R97.20 Elevated prostate specific antigen [PSA] (principal) | CPT/HCPCS: 81003; 99202 ==